=== PATIENT | male | born 1955 | race Caucasian/White ===

== ENCOUNTER 2017-04-28 07:24 | Emergency (ER) | payer BC ==
--- NOTE | 2017-04-28 07:35 | EDPHY ---
H & P Time Seen by Provider: 04/28/17 07:35 HPI/ROS: Chief complaint. Unable to urinate HPI. Patient is a 61-year-old male with inability to urinate for the past 10 hours. The patient has an elevated PSA with a negative biopsy. Has BPH. He has had previous dribbling of urine at times but never inability to urinate. He has tried taking a hot shower and sitting in the bathtub but still unable to urinate. Patient is visiting from [place] and here for the weekend for a wedding. Denies chest pain or shortness of breath. No fever. He was urinating fairly normally yesterday ROS Constitutional. no fever/chills, no weakness Eyes. no problems with vision ENT. no sore throat, no nasal drainage Cardiovascular. no chest pain Respiratory. no shortness of breath, no cough Abdominal. Low abdominal pain secondary to full bladder sensation . Can't urinate MS. no calf pain/swelling, no neck/back pain, no joint pain Skin. no rash Lymph. no swollen glands Neuro. no headache, no dizziness, no difficulty walking or with speech Past Medical/Surgical History: Elevated PSA, dyslipidemia, GERD, crest syndrome Social History: , nonsmoker, no alcohol Smoking Status: Never smoked Physical Exam: General Appearance: Alert well-developed male moderate distress vital signs significant for elevated blood pressure 235/98 Eyes: Pupils equal and round no pallor or injection. ENT, Mouth: Mucous membranes are moist. Respiratory: There are no retractions, lungs are clear to auscultation. Cardiovascular: Regular rate and rhythm. Gastrointestinal: Suprapubic tenderness with distended bladder. Normal penis and testicles Neurological: Awake and alert, sensory and motor exams grossly normal. Skin: Warm and dry, no rashes. Musculoskeletal: Neck is supple nontender. Extremities symmetrical, full range of motion. Psychiatric: Patient is oriented X 3, there is no agitation. Constitutional: Initial Vital Signs Temperature (C) 36.9 C 04/28/17 07:27 Heart Rate 66 04/28/17 07:27 Respiratory Rate 19 04/28/17 07:27 Blood Pressure 235/98 H 04/28/17 07:27 O2 Sat (%) 97 04/28/17 07:27 O2 Delivery Mode Room Air Allergies/Adverse Reactions: No Known Allergies Allergy (Unverified 04/28/17 07:27) Home Medications: Medication Instructions Recorded Cephalexin [Keflex (*)] 500 mg PO TID #8 cap 04/28/17 PRILOSEC 04/28/17 SIMVASTATIN 04/28/17 Tamsulosin HCl [Flomax] 0.4 mg PO DAILY8 #4 cap 04/28/17 Medical Decision Making Procedures: Bladder scan shows 587 mL of urine in bladder Salgado catheter is placed-- ED Course/Re-evaluation: PATIENT REMAINED STABLE AND FEELING MUCH BETTER. The patient and I discussed urinalysis, treatment plan including criteria for return importance of follow- up and further evaluation. We will leave the catheter in until the patient returns home to [place]. He and his expressed understanding and agreement Differential Diagnosis: I considered urinary tract infection, BPH, prostatitis - Data Points Laboratory Results: 04/28/17 07:55 Urine Color YELLOW Urine Appearance CLEAR Urine pH 5.0 (5.0-7.5) Ur Specific Benedict 1.015 (1.002-1.030) Urine Protein NEGATIVE (NEGATIVE) Urine Ketones NEGATIVE (NEGATIVE) Urine Blood 2+ H (NEGATIVE) Urine Nitrate NEGATIVE (NEGATIVE) Urine Bilirubin NEGATIVE (NEGATIVE) Urine Urobilinogen NEGATIVE EU EU (0.2-1.0) Ur Leukocyte Esterase NEGATIVE (NEGATIVE) Urine RBC 50-182 /hpf H /hpf (0-3) Urine WBC 1-3 /hpf /hpf (0-3) Ur Epithelial Cells NONE SEEN /lpf /lpf (NONE-1+) Urine Glucose NEGATIVE (NEGATIVE) Medications Given: Discontinued Medications Cephalexin HCl (Keflex) 500 mg PO EDNOW ONE PRN Reason: Protocol Stop: 04/28/17 08:12 Last Admin: 04/28/17 08:46 Dose: 500 mg Tamsulosin HCl (Flomax) 0.4 mg PO EDNOW ONE Stop: 04/28/17 08:12 Last Admin: 04/28/17 08:46 Dose: 0.4 mg Departure - Departure Disposition: Home, Routine, Self-Care Clinical Impression: Acute retention of urine Condition: Good Instructions: Urinary Retention in Men (ED) Additional Instructions: Cephalexin twice daily to prevent infection. Flomax daily for prostate and to help urinate. Follow up with your regular physician upon return home to [place] for catheter out. Return over the weekend for pain, fever, catheter problem Referrals: MALATHI POLANCO [Other] - As per Instructions Prescriptions: Cephalexin [Keflex (*)] 500 mg PO TID #8 cap Tamsulosin HCl [Flomax] 0.4 mg PO DAILY8 #4 cap
[2017-04-28 08:04] LABS: COLOR YELLOW; LEUKOCYTE ESTERASE,URINE NEGATIVE (NEGATIVE); NITRITE,URINE NEGATIVE (NEGATIVE)
[2017-04-28] MEDS ORDERED: CEPHALEXIN 500 MG CAP PO ONE (08:11)
[2017-04-28] MEDS ORDERED: TAMSULOSIN HCL 0.4 MG CAP PO ONE (08:11)
[2017-04-28 08:32] LABS: RBC,URINE 50-182 /hpf (0-3)
[2017-04-28 08:52] VITALS: RESP 16
[2017-04-28 09:38] VITALS: BP 135/95; PULSE 66; TEMP 98.1; O2SAT 97
== END 2017-04-28 09:38 | disposition home or self-care (01) ==
DX: R33.9 Retention of urine, unspecified (principal)